=== PATIENT | female | born 1980 | race Caucasian/White ===

== ENCOUNTER 2018-07-06 13:44 | Emergency (ER) | payer BC ==
[~2018-07-06] VITALS: Ht 172.7 cm; Wt 72.6 kg
--- OUTSIDE RECORDS SUMMARY | ~2018-07-06 | XMS | Clinical Summary ---
Demographics + + + | Address | [address] [address] [address] | | | [place] [address] | + + + | Home Phone | | + + + | Preferred Language | Unknown | + + + | Marital Status | | + + + | Jew Affiliation | Unknown | + + + | Race | Unknown | + + + | Ethnic Group | Unknown | + + + Author + + + | Author | [facility] | | | and [place] | + + + | Organization | [facility] | | | and [place] | + + + | Address | Unknown | + + + | Phone | Unavailable | + + + Care Team Providers + +------+ + | Care Cloud Software Engineer Name | Role | Phone | + +------+ + PP | Unavailable | + +------+ + Allergies + + + +--------+ + | Active Allergy | Reactions | Severity | Noted | Comments | | | | | Date | | + + + +--------+ + | Sulfa Antibiotics | | | | | + + + +--------+ + Medications + + + +---------+------+------+-------+ | Medication | Sig | Dispensed | Refills | Star | End | Statu | | | | | | t | Date | s | | | | | | Date | | | + + + +---------+------+------+-------+ | Azithromycin | PACK as directed | | 0 | 06/1 | | Activ | | (ZITHROMAX PO) | | | | 3/20 | | e | | | | | | 10 | | | + + + +---------+------+------+-------+ | VITAMINS | TABS | | 0 | 09/1 | | Activ | | PO | | | | 4/20 | | e | | | | | | 12 | | | + + + +---------+------+------+-------+ | CALCIUM PO | TABS | | 0 | 09/1 | | Activ | | | | | | 4/20 | | e | | | | | | 12 | | | + + + +---------+------+------+-------+ Active Problems Not on file Social History + +-------+ +--------+------+ | Tobacco Use | Types | Packs/Day | Years | Date | | | | | Used | | + +-------+ +--------+------+ | Never Assessed | | | | | + +-------+ +--------+------+ + + + | Sex Assigned at | Date Recorded | | | | + + + | Not on file | | + + + + + + + | Job Start Date | Occupation | Industry | + + + + | Not on file | Not on file | Not on file | + + + + + + + + | Travel History | Travel Start | Travel End | + + + + + + | No recent travel history available. | + + Last Filed Vital Signs + + + + | Vital Sign | Reading | Time Taken | + + + + | Blood Pressure | 132/86 | 08/27/2009 0000 PDT | + + + + | Pulse | - | - | + + + + | Temperature | - | - | + + + + | Respiratory Rate | - | - | + + + + | Oxygen Saturation | - | - | + + + + | Inhaled Oxygen | - | - | | Concentration | | | + + + + | Weight | 76.9 kg (169 lb 8 | 08/27/2009 0000 PDT | | | oz) | | + + + + | Height | 175.3 cm (5' 9") | 08/27/2009 0000 PDT | + + + + | Body Mass Index | 25.03 | 08/27/2009 0000 PDT | + + + + Plan of Treatment + + + + + | Health Maintenance | Due Date | Last Done | Comments | + + + + + | Vaccine: | | | | | Dtap/Tdap/Td (1 - | 2 | | | | Tdap) | | | | + + + + + | Cervical Cancer | | | | | Screening (Pap) | 3 | | | + + + + + | Vaccine: Influenza | | | | | (Season Ended) | 9 | | | + + + + + Results Not on filefrom Last 3 Months
--- OUTSIDE RECORDS SUMMARY | ~2018-07-06 | XMS | Clinical Summary ---
Demographics + + + | Address | [address] [address] [address] | | | [place] [address] | + + + | Home Phone | | + + + | Preferred Language | Unknown | + + + | Marital Status | | + + + | Yazdanism Affiliation | Unknown | + + + | Race | Unknown | + + + | Ethnic Group | Unknown | + + + Author + + + | Author | [facility] | | | and [place] | + + + | Organization | [facility] | | | and [place] | + + + | Address | Unknown | + + + | Phone | Unavailable | + + + Care Team Providers + +------+ + | Care Oncology Social Work Name | Role | Phone | + [...]
[2018-07-06] MEDS ORDERED: K-TAB ER20 MEQ PO (15:27)
--- NOTE | 2018-07-07 11:40 | EKG ---
[facility] [address] [facility] [place] [address] Signed Sinus rhythm with occasional premature ventricular complexes Otherwise normal ECG No previous ECGs available Confirmed by FREDRICK PAGE MD ([id number]) on 07/07/2018 11:40:16 AM Electronically Signed By: FREDRICK PAGE MD 07/07/18 1140 PATIENT NAME: ANGUS MÁRQUEZ Electrocardiogram DATE OF : 84 PHYSICIAN: FREDRICK PAGE MD REPORT #: [id number] REPORT IS CONFIDENTIAL AND NOT TO BE RELEASED WITHOUT AUTHORIZATION
== END 2018-07-06 15:50 | disposition home or self-care (01) ==
LOC: ED 13:44
DX: I49.3 Ventricular premature depolarization (principal); E87.6 Hypokalemia; J40 Bronchitis, not specified as acute or chronic; Z88.5 Allergy status to narcotic agent; Z88.2 Allergy status to sulfonamides; Z88.8 Allergy status to other drugs, medicaments and biological substances
CPT/HCPCS: 71046; 80053; 83735; 84443; 84484; 85025; 93005; 93010; 99285-25

== ENCOUNTER 2018-07-22 11:30 | Emergency (ER) | payer BC ==
[~2018-07-22] VITALS: Ht 172.7 cm; Wt 72.6 kg
--- OUTSIDE RECORDS SUMMARY | ~2018-07-22 | XMS | Clinical Summary ---
Demographics + + + | Address | [address] [address] [address] | | | [place] [address] | + + + | Home Phone | | + + + | Preferred Language | Unknown | + + + | Marital Status | | + + + | Sabianist Affiliation | Unknown | + + + | Race | Unknown | + + + | Ethnic Group | Unknown | + + + Author + + + | Author | [facility] | | | and [place] | + + + | Organization | [facility] | | | and [place] | + + + | Address | Unknown | + + + | Phone | Unavailable | + + + Care Team Providers + +------+ + | Care Master Tax Advisor Name | Role | Phone | + [...]
--- OUTSIDE RECORDS SUMMARY | ~2018-07-22 | XMS | Clinical Summary ---
Demographics + + + | Address | [address] [address] [address] | | | [place] [address] | + + + | Home Phone | | + + + | Preferred Language | Unknown | + + + | Marital Status | | + + + | Lutheran Affiliation | Unknown | + + + | Race | Unknown | + + + | Ethnic Group | Unknown | + + + Author + + + | Author | [facility] | | | and [place] | + + + | Organization | [facility] | | | and [place] | + + + | Address | Unknown | + + + | Phone | Unavailable | + + + Care Team Providers + +------+ + | Care Floorworker Distributor Name | Role | Phone | + [...]
[~2018-07-22 11:30] MED LIST: K-TAB ER20 MEQ PO
--- OUTSIDE RECORDS SUMMARY | 2018-07-22 11:32 | XMS ---
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 E.DMadie VISIT COUNT (12 MO.) 2 [facility] TOTAL 2 NOTE: Visits indicate total known visits. ED/UCC VISIT TRACKING (12 MO.) 07/22/2018 11:31 [facility] [place] TYPE: Emergency COMPLAINT: - HEART PALPITATIONS 07/06/2018 13:[address] [facility] [place] TYPE: Emergency COMPLAINT: - CHEST PAIN DIAGNOSES: - Allergy status to sulfonamides status - Bronchitis, not specified as acute or chronic - Allergy status to other drugs, medicaments and biological substances status - Ventricular premature depolarization - Allergy status to narcotic agent status - Hypokalemia - Chest pain, unspecified INPATIENT VISIT TRACKING (12 MO.) No inpatient visits to display in this time frame [email or web address]
[2018-07-22] MEDS ORDERED: METOPROLOL SUCC25 MG PO (11:41)
--- NOTE | 2018-07-22 22:42 | EKG ---
[facility] [address] [place] [address] Signed Sinus bradycardia with occasional premature ventricular complexes Otherwise normal ECG When compared with ECG of 06-JUL-2018 13:52, Vent. rate has decreased BY 43 BPM Confirmed by FREDRICK PAGE MD ([id number]) on 07/22/2018 10:42:12 PM Electronically Signed By: FREDRICK PAGE MD 07/22/18 2242 PATIENT NAME: ANGUS MÁRQUEZ Electrocardiogram DATE OF : 84 PHYSICIAN: FREDRICK PAGE MD REPORT #: [id number] REPORT IS CONFIDENTIAL AND NOT TO BE RELEASED WITHOUT AUTHORIZATION
== END 2018-07-22 13:03 | disposition home or self-care (01) ==
LOC: ED 11:30
DX: I95.9 Hypotension, unspecified (principal); R00.1 Bradycardia, unspecified; T44.7X5A Adverse effect of beta-adrenoreceptor antagonists, initial encounter; Z88.5 Allergy status to narcotic agent; Z88.2 Allergy status to sulfonamides; Z88.8 Allergy status to other drugs, medicaments and biological substances; Z79.899 Other long term (current) drug therapy
CPT/HCPCS: 71045; 80053; 84484; 85025; 93005; 93010; 96374; 99285-25; J2405

== ENCOUNTER 2020-10-03 08:55 | Day surgery (SDC) | payer BC ==
[~2020-10-03] VITALS: Ht 172.7 cm; Wt 76.4 kg
[~2020-10-03 08:55] MED LIST changes: +DAILY VALUE1 EACH PO; +METOPROLOL SUCC25 MG PO
--- NOTE | 2020-10-03 12:07 | NUR ---
10/03/20 1207 Sheets,Esther 1147 PT ARRIVED TO PACU ON 6L VIA MASK, RESP EVEN AND UNLABORED WITH JAW THRUST USED OFF AND ON TO MAINTAIN AIRWAY. VSS. ORAL AIRWAY IN PLACE. 1156 PT STARTING TO SWALLOW AND ORAL AIRWAY REMOVED. PT RESTING IN BED AND EYES REMAIN CLOSED. 1157 O2 REMOVED. 1200 MD AT BEDSIDE AND PT NODES TO QUESTIONS. 1205 PT DENIES PAIN AND EASILY FALLS BACK TO SLEEP.
--- NOTE | 2020-10-03 12:42 | NUR ---
LE 1220: PT IS BACK TO DS FROM PACU. SHE IS DROWSY, BUT WAKES UP AND ANSWERES QUESTIONS APPROPRIATELY. CALL LIGHT IS WITHIN REACH. WATER ON BEDSIDE TABLE. IS AT THE BEDSIDE. NO ADDITIONAL NEEDS AT THIS TIME.
[2020-10-03] MEDS ORDERED: CARAFATE1 GM/10 ML PO (12:58)
[2020-10-03] MEDS ORDERED: HYDROCODONE-AC118 M1 PO (12:58)
--- NOTE | 2020-10-04 15:48 | PATH ---
[facility] [address], [place] [address] Signed SPECIMEN(S): A LEFT TONSIL SPECIMEN(S): B RIGHT TONSIL SPECIMEN SOURCE: A. LEFT TONSIL B. RIGHT TONSIL CLINICAL HISTORY: Pre: Recurrent tonsillitis and tonsilliths. Post: Tonsillectomy. FINAL PATHOLOGIC DIAGNOSIS: A. Tonsil, left, tonsillectomy: - Mucosal squamous epithelium and benign submucosal glands in association with a lymphocytic infiltrate and germinal centers, consistent with tonsillar tissue. B. Tonsil, right, tonsillectomy: - Mucosal squamous epithelium and benign submucosal glands in association with a lymphocytic infiltrate and germinal centers, consistent with tonsillar tissue. TWK:em:C2NR MICROSCOPIC EXAMINATION: Histologic sections of all submitted blocks are examined by light microscopy. These findings, together with the gross examination, support the pathologic diagnosis. GROSS DESCRIPTION: Two specimens are received in two containers, labeled "LH." A. The specimen, labeled "LH," and designated on the requisition "left tonsil," is received in formalin and consists of a raines palatine tonsil measuring 1.5 x 1.1 x 0.7 cm. The cut surface is raines-pink and unremarkable. The surgical margin is inked black and a insurance sales representative section is submitted in cassette (A1). B. The specimen, labeled "LH," and designated on the requisition "right tonsil," is received in formalin and consists of a raines palatine tonsil measuring 1.4 x 1.2 x 0.6 cm. The cut surface is raines-pink and unremarkable. Veterinary Science Teacher sections are submitted in cassette (A1). AT (under the direct supervision of a pathologist) The Gross Description was prepared using a voice recognition system. The report was reviewed for accuracy; however, sound-alike word errors, addition and/or PATIENT NAME: ANGUS MÁRQUEZ PATHOLOGY DATE OF : 84 REPORT #: [id number] PHYSICIAN: DUY RODRIGUEZ PCP: VIANEY STEPHENS PAC REPORT IS CONFIDENTIAL AND NOT TO BE RELEASED WITHOUT AUTHORIZATION [facility] [address], [place] [address] Signed deletions may occur. If there is any question about this report, please contact Client Services. PERFORMING LABORATORY: The technical component was performed by [employer] [address] (Property Manager: Brooklyn Ballesteros MD; CLIA# [id number]). Professional interpretation was performed by [employer] [facility], [address] [address] (CLIA# [id number]). Diagnostician: Luciano Mistry MD Pathologist Electronically Signed 10/04/2020 Copies: ~ PATIENT NAME: ANGUS MÁRQUEZ PATHOLOGY DATE OF : 84 REPORT #: [id number] PHYSICIAN: DUY RODRIGUEZ PCP: VIANEY STEPHENS PAC REPORT IS CONFIDENTIAL AND NOT TO BE RELEASED WITHOUT AUTHORIZATION
--- NOTE | 2020-10-10 12:13 | OR ---
[facility] [address] [place], [place] [address] Signed DATE OF OPERATION: 10/03/2020 SURGEON: Long Amos MD LOCATION: [facility] Outpatient Surgery. PREOPERATIVE DIAGNOSIS: Chronic tonsillitis. POSTOPERATIVE DIAGNOSIS: Chronic tonsillitis. PROCEDURE: Tonsillectomy. ANESTHESIA: General orotracheal; NIGHT SUPERVISOR, Vernell. PREOPERATIVE HISTORY: Angus is a 40-year-old lady with long history of sore throats, tonsillitis, tonsil lithiasis. She had a tonsillectomy performed about 30 years ago. Tonsil tissue has recurred and she has had recurrent problems, unresponsive to appropriate medication. She is taken to the operating room for the above-mentioned procedures. OPERATIVE PROCEDURE AND FINDINGS: After informed consent, the patient was taken to the operating room, placed in the supine position where general orotracheal anesthesia was induced. The patient and procedure were verified. The patient was repositioned. McIvor mouth gag placed into suspension. Headlight exam of the pharynx showed lymphoid tonsillar tissue in both tonsil fossae fairly prominent, cryptic, inflamed, some purulence present. The left tonsil tissue was grasped with a tenaculum, retracted medially and removed from its fossa with mucosal sparing incisions with Coblation. The tissue extended up into the nasopharynx and all obvious inflamed tissue was removed. Same procedure on the right side. Hemostasis was verified. The pharynx was suctioned, clear of blood secretions. Mouth gag was removed. The patient was awakened, extubated, transported to the recovery room in good condition. COMPLICATIONS: No complications. Electronically Signed By: LONG AMOS MD 10/10/20 1213 PATIENT NAME: ANGUS MÁRQUEZ OPERATIVE REPORT DATE OF : 84 REPORT #: [id number] PHYSICIAN: LONG AMOS MD PCP: VIANEY STEPHENS PAC REPORT IS CONFIDENTIAL AND NOT TO BE RELEASED WITHOUT AUTHORIZATION [address] [address] Signed DRAINS: No drains. BLOOD LOSS: Minimal. SPECIMEN: To pathology, left and right tonsils separately. Long Amos MD GC/MODL /[id number] Copies: ~ Electronically Signed By: LONG AMOS MD 10/10/20 1213 PATIENT NAME: ANGUS MÁRQUEZ OPERATIVE REPORT DATE OF : 84 REPORT #: [id number] PHYSICIAN: LONG AMOS MD PCP: VIANEY STEPHENS PAC REPORT IS CONFIDENTIAL AND NOT TO BE RELEASED WITHOUT AUTHORIZATION
== END 2020-10-03 14:30 | disposition home or self-care (01) ==
LOC: DS 08:55 → OPS 08:55 → DS 11:45 → OPS 14:30
PROVIDERS: ATTEND Otolaryngology
PROC: 0C5PXZZ Destruction of Tonsils, External Approach (ICD-10-PCS; principal; 2020-10-03 11:45)
DX: J35.01 Chronic tonsillitis (principal); J03.91 Acute recurrent tonsillitis, unspecified; J35.8 Other chronic diseases of tonsils and adenoids; F17.200 Nicotine dependence, unspecified, uncomplicated; Z88.1 Allergy status to other antibiotic agents
CPT/HCPCS: 00170; J1790; J2704; J3475; J7030; J7121

== ENCOUNTER 2024-06-10 15:24 | Emergency (ER) | payer BC ==
[~2024-06-10] VITALS: Ht 172.7 cm; Wt 80.7 kg
[~2024-06-10 15:24] MED LIST changes: +CARAFATE1 GM/10 ML PO; +HYDROCODONE-AC118 M1 PO
[2024-06-10] MEDS ORDERED: DOTTI1 EAC2 TD (18:36)
[2024-06-10] MEDS ORDERED: LIDOCAINE/RACEPINEP/TETRACAINE 3 ML SYR TOP ONE (19:15)
[2024-06-10 20:04] VITALS: BP 119/96
== END 2024-06-10 20:00 | disposition home or self-care (01) ==
LOC: ED 15:24
DX: S61.214A Laceration without foreign body of right ring finger without damage to nail, initial encounter (principal); Z91.040 Latex allergy status; Z88.2 Allergy status to sulfonamides; W22.8XXA Striking against or struck by other objects, initial encounter
CPT/HCPCS: 12001; 73140; 99283